=== PATIENT | female | born 1965 ===

== ENCOUNTER 2018-01-15 09:23 | Emergency (ER) | payer MEDICARE, OTHER ==
[~2018-01-15] VITALS: Ht 165.1 cm; Wt 145.0 kg
[2018-01-15] MEDS ORDERED: OXYcodone/APAP 5/325MG TABLET ONE (09:49)
[2018-01-15] MEDS ORDERED: OXYcodone/APAP 5/325MG TABLET PO ONE (10:00)
[2018-01-15 10:55] VITALS: BP 139/91
== END 2018-01-15 11:21 | disposition home or self-care (01) ==
LOC: ED 11:16
DX: S46.911A Strain of unspecified muscle, fascia and tendon at shoulder and upper arm level, right arm, initial encounter (principal); S56.911A Strain of unspecified muscles, fascia and tendons at forearm level, right arm, initial encounter; E11.9 Type 2 diabetes mellitus without complications; I10 Essential (primary) hypertension; M19.90 Unspecified osteoarthritis, unspecified site; W19.XXXA Unspecified fall, initial encounter; Y93.89 Activity, other specified; Y92.89 Other specified places as the place of occurrence of the external cause; Y99.8 Other external cause status
CPT/HCPCS: 99283